=== PATIENT | male | born 1985 | race Caucasian/White ===

== ENCOUNTER 2021-06-15 10:47 | Outpatient (CLI) | payer OTHER, SELFPAY ==
[2021-06-15 18:33] LABS: Hematocrit 42.4 % (42.0-52.0); Hemoglobin 14.3 g/dL (14.0-18.0); Mean Corpuscular HGB Conc 33.7 g/dl (32-36); Mean Corpuscular Hemoglobin 29.8 pg (26-34); Mean Corpuscular Volume 88.3 fl (80-100); Mean Platelet Volume 10.2 fl (7.4-10.4); Platelet Count Result 208 k/mm3 (150-375); Red Cell Distribution Width 12.6 % (11.5-14.5); White Blood Count 5.8 K/mm3 (4.5-10.0)
[2021-06-15 18:54] LABS: Alanine Aminotransferase 47 U/L (4-50); Albumin Level 4.8 g/dL (3.5-5.1); Alkaline Phosphatase 55 U/L (38-126); Anion Gap 8 mmol/L (8-16); Aspartate Amino Transferase 33 U/L (17-59); Bilirubin,Total 0.8 mg/dL (0.2-1.3); Blood Urea Nitrogen 18 mg/dL (9-20); Calcium 9.8 mg/dL (8.4-10.2); Carbon Dioxide 29 mmol/L (22-30); Chloride 101 mmol/L (98-107); Cholesterol 249 mg/dL (0-200); Estimated Glomerular Filt Rate > 60; Glucose 110 mg/dL (65-110); HDL Direct 39 mg/dL; Lipase 59 U/L (23-300); Potassium 4.2 mmol/L (3.4-5.0); Sodium 138 mmol/L (137-145); Triglycerides 125 mg/dL (<150)
[2021-06-15 19:05] LABS: LDL Cholesterol Direct 166 mg/dL
[2021-06-15 19:17] LABS: Hemoglobin A1C 5.5 % (<5.7)
== END 2021-06-15 10:48 | disposition home or self-care (01) ==
PROVIDERS: PCP Family Medicine; Visit Provider Family Medicine
DX: Z00.00 Encounter for general adult medical examination without abnormal findings (principal); E66.3 Overweight; R10.11 Right upper quadrant pain
CPT/HCPCS: 36415; 80053; 80061; 83036; 83690; 84443; 85027

== ENCOUNTER 2021-06-27 07:45 | Outpatient (CLI) | payer OTHER, SELFPAY ==
--- NOTE | ~2021-06-27 | US_ITS ---
US abdomen limited DATE: 06/27/2021 08:18 INDICATION: Right upper quadrant abdominal pain TECHNIQUE: Real-time imaging, Doppler evaluation including liver, pancreas, gallbladder COMPARISON: None FINDINGS: No gallstones or gallbladder wall thickening or pericholecystic fluid. The common bile duct measures 3 mm, within normal range. Normal hepatopedal portal venous flow direction. No hepatic space-occupying mass lesion is evident. T he pancreas is largely obscured by bowel gas. IMPRESSION: The pancreas is not well demonstrated due to overlying bowel gas; otherwise unremarkable examination Reviewed, dictated and finalized at [facility]. Reviewed, dictated and finalized at [facility]. ARINE CHURN OPERATOR IMPRESSION: The pancreas is not well demonstrated due to overlying bowel gas; o therwise unremarkable examination
== END 2021-06-27 07:46 | disposition home or self-care (01) ==
LOC: ANHIMG 07:51
PROVIDERS: PCP Family Medicine; Visit Provider Family Medicine
DX: R10.11 Right upper quadrant pain (principal)
CPT/HCPCS: 76705

== ENCOUNTER 2022-03-31 08:48 | Outpatient (CLI) | payer OTHER, SELFPAY ==
[2022-03-31 19:15] LABS: Basophils Absolute Auto 0.1 K/mm3 (0.0-0.1); Basophils Percent Auto 0.4 % (0.2-1.2); Eosinophils Percent Auto 0.2 % (0-4.4); Hemoglobin 14.2 g/dL (14.0-18.0); Immature Granulocyte Absolute 0.09 K/mm3 (0.00-0.031); Immature Granulocyte Percent A 0.6 % (0-0.5); Lymphocytes Absolute Auto 1.51 K/mm3 (0.9-3.2); Mean Corpuscular HGB Conc 32.3 g/dl (32-36); Mean Corpuscular Hemoglobin 28.6 pg (26-34); Mean Corpuscular Volume 88.7 fl (80-100); Mean Platelet Volume 10.9 fl (7.4-10.4); Monocytes Absolute Auto 1.3 K/mm3 (0.1-0.6); Monocytes Percent Auto 8.3 % (2.6-8.5); Neutrophils Absolute Auto 12.2 K/mm3 (1.3-6.7); Neutrophils Percent Auto 80.5 % (45.5-73.1); Platelet Count Result 207 k/mm3 (150-375); Red Blood Count 4.96 M/mm3 (4.6-6.20); Red Cell Distribution Width 13.5 % (11.5-14.5); White Blood Count 15.1 K/mm3 (4.5-10.0)
[2022-03-31 21:00] LABS: Appearance Urine Cloudy (Clear); Bilirubin Urine 1+ (Negative); Blood Urine 3+ (Negative); Color Urine Yellow (Yellow); Glucose Urine UA Trace mg/dL (Negative); Ketones Urine Negative (Negative); Leukocyte Esterase Ur 1+ LEU/UL (NEGATIVE); Nitrate Urine Positive (Negative); Protein Urine 2+ mg/dL (Negative); Specific Grav Ur >= 1.030 (1.001-1.035); Urobilinogen Urine 0.2 mg/dL (<2.0); pH Urine 5.5 (5.0-9.0)
[2022-03-31 21:07] LABS: Bacteria Urine Trace /hpf; Mucus Urine Rare /lpf; RBC Urine 51-75 /hpf (0-2); Squamous Epithelial Cell Urine Rare /hpf (Few); WBC Clumps Urine Present /HPF; WBC Urine >75 /hpf (0-3)
[2022-03-31 21:20] LABS: Add Urine Microscopic? YES
== END 2022-03-31 08:49 | disposition home or self-care (01) ==
LOC: ANHBWCLAB 08:49
PROVIDERS: PCP Family Medicine; Visit Provider Family Medicine
DX: N30.90 Cystitis, unspecified without hematuria (principal)
CPT/HCPCS: 36415; 81001; 85025; 87077; 87086; 87186

== ENCOUNTER 2022-12-30 09:49 | Outpatient (CLI) | payer OTHER, SELFPAY | END 2022-12-30 09:50 | disposition home or self-care (01) | LOC: ANHBWCIMG 09:51 | PROVIDERS: PCP Family Medicine; Visit Provider Nurse Practitioner | DX: M25.562 Pain in left knee (principal) | CPT/HCPCS: 73562 ==

== ENCOUNTER → 2023-01-12 08:10 | Outpatient (CLI) | payer OTHER, SELFPAY ==
--- NOTE | ~2023-01-12 | MR_ITS ---
EXAMINATION: MR knee LT wo con DATE: 01/12/2023 09:33 INDICATION: M25.562 - Pain in left knee, popping sensation, jumping injury. TECHNIQUE: Magnetic resonance imaging (MRI) of the left knee was performed without intravenous contra st. Sequences included axial PD-weighted FS FSE, coronal PD-weighted FSE and PD-weighted FS FSE, sagi ttal PD-weighted FSE, and sagittal T2-weighted FS FSE. COMPARISON: X-ray left knee 12/30/2022. FINDINGS: Medial compartment: Meniscus intact. Mild diffuse cartilage thinning. Mild osteophytosis. Lateral compartment: Oblique undersurface tear of the anterior horn, lateral meniscus, with adjacent cystic fluid collecti on. Mild diffuse cartilage thinning and osteophytosis. Patellofemoral compartment: Mild lateral subluxation of the patella in a shallow femoral groove. Partial-thickness patellar carti robby signal change. Intact retinacula. Mild osteophytosis. Ligaments and tendons: The ACL, PCL, MCL, and LCL are intact. Remaining flexor and extensor tendons are intact. Fluid: Small volume joint fluid. Osseous/other: No suspicious focal or diffuse marrow signal. IMPRESSION: 1. Oblique undersurface tear of the anterior horn, lateral meniscus, with an adjacent perimeniscal cy st. 2. Mild tricompartmental osteoarthritis. 3. Small left knee joint effusion. Reviewed, dictated and finalized at [facility]. IMPRESSION: 1. Oblique undersurface tear of the anterior horn, lateral meniscus, with an ad jacent perimeniscal cyst. 2. Mild tricompartmental osteoarthritis. 3. Small left knee joint effusion.
== END ==
PROVIDERS: PCP Family Medicine; Visit Provider Nurse Practitioner
DX: S83.282A Other tear of lateral meniscus, current injury, left knee, initial encounter (principal); M17.12 Unilateral primary osteoarthritis, left knee; M25.462 Effusion, left knee; T14.90XA Injury, unspecified, initial encounter
CPT/HCPCS: 73721

== ENCOUNTER 2023-06-20 10:14 | Outpatient (CLI) | payer OTHER, SELFPAY ==
[2023-06-20 20:14] LABS: Hematocrit 45.1 % (42.0-52.0); Mean Corpuscular Hemoglobin 28.9 pg (26-34); Mean Platelet Volume 10.3 fl (7.4-10.4); Platelet Count Result 215 k/mm3 (150-375); Red Blood Count 4.85 M/mm3 (4.6-6.20); Red Cell Distribution Width 13.1 % (11.5-14.5); White Blood Count 6.9 K/mm3 (4.5-10.0)
[2023-06-20 20:22] LABS: Alanine Aminotransferase 36 U/L (6-50); Albumin Level 4.6 g/dL (3.5-5.1); Alkaline Phosphatase 67 U/L (38-126); Anion Gap 4 mmol/L (8-16); Aspartate Amino Transferase 41 U/L (17-59); Bilirubin,Total 0.5 mg/dL (0.2-1.3); Blood Urea Nitrogen 16 mg/dL (9-20); Calcium 9.3 mg/dL (8.4-10.2); Carbon Dioxide 30 mmol/L (22-30); Chloride 106 mmol/L (98-107); Cholesterol 219 mg/dL (0-200); Estimated Glomerular Filt Rate > 60; Glucose 111 mg/dL (65-110); HDL Direct 35 mg/dL; Potassium 4.5 mmol/L (3.4-5.0); Sodium 140 mmol/L (137-145); Triglycerides 163 mg/dL (<150); Uric Acid 6.3 mg/dL (3.5-8.5)
[2023-06-20 20:33] LABS: LDL Cholesterol Direct 130 mg/dL
[2023-06-20 23:34] LABS: Hemoglobin A1C 5.2 % (<5.7)
== END 2023-06-20 10:15 | disposition home or self-care (01) ==
LOC: ANHBWCLAB 10:15
PROVIDERS: PCP Nurse Practitioner Adult Health; Visit Provider Nurse Practitioner Adult Health
DX: M25.50 Pain in unspecified joint (principal); Z13.9 Encounter for screening, unspecified; E66.9 Obesity, unspecified
CPT/HCPCS: 36415; 80053; 80061; 83036; 84443; 84550; 85027

== ENCOUNTER 2023-07-26 08:28 | Outpatient (CLI) | payer OTHER, SELFPAY ==
--- NOTE | ~2023-07-26 | XR_ITS ---
Lumbosacral Spine: AP and lateral views Clinical History: Pain Findings: The normal lordotic curve is maintained. The vertebral bodies and posterior elements are i ntact. The intervertebral disc spaces are preserved. The sacroiliac joints are normally outlined. Impression: No significant abnormality. Reviewed, dictated and finalized at [facility]. GE NURSE Impression: No significant abnormality.
== END 2023-07-26 08:29 | disposition home or self-care (01) ==
LOC: ANHBWCIMG 08:29
PROVIDERS: PCP Nurse Practitioner Adult Health; Visit Provider Nurse Practitioner Adult Health
DX: M79.606 Pain in leg, unspecified (principal)
CPT/HCPCS: 72100

== ENCOUNTER 2024-06-19 13:16 | Outpatient (CLI) | payer OTHER, SELFPAY ==
--- NOTE | ~2024-06-19 | XR_ITS ---
Supine and upright views of the abdomen Clinical history: Abdominal pain Findings: Bowel gas pattern is nonspecific. No evidence for obstruction or free air. No abnormal mass lesion or calcification is seen. Osseous structures are intact. Impression: No significant abnormality is seen. Reviewed, dictated and finalized at [facility]. Impression: No significant abnormality is seen.
[2024-06-19 20:01] LABS: Add Urine Microscopic? NO; Appearance Urine Clear (Clear); Bilirubin Urine Negative (Negative); Blood Urine Negative (Negative); Color Urine Yellow (Yellow); Glucose Urine UA Negative (Negative); Ketones Urine Negative (Negative); Leukocyte Esterase Ur Negative LEU/UL (Negative); Nitrate Urine Negative (Negative); Protein Urine Negative (Negative); Specific Grav Ur 1.019 (1.001-1.035); Urobilinogen Urine 0.2 mg/dL (<2.0)
[2024-06-19 20:33] LABS: Alanine Aminotransferase 36 U/L (6-50); Albumin Level 4.8 g/dL (3.5-5.1); Alkaline Phosphatase 61 U/L (38-126); Anion Gap 9 mmol/L (4-12); Aspartate Amino Transferase 46 U/L (17-59); Bilirubin,Total 0.7 mg/dL (0.2-1.3); Blood Urea Nitrogen 16 mg/dL (9-20); Calcium 9.9 mg/dL (8.4-10.2); Carbon Dioxide 31 mmol/L (22-30); Chloride 101 mmol/L (98-107); Cholesterol 215 mg/dL (0-200); Estimated Glomerular Filt Rate > 60; Glucose 102 mg/dL (65-110); HDL Direct 35 mg/dL; Potassium 5.1 mmol/L (3.4-5.0); Sodium 141 mmol/L (137-145); Triglycerides 143 mg/dL (<150)
[2024-06-19 20:39] LABS: Hematocrit 45.9 % (42.0-52.0); Hemoglobin 15.3 g/dL (14.0-18.0); Mean Corpuscular HGB Conc 33.3 g/dl (32-36); Mean Corpuscular Hemoglobin 29.8 pg (26-34); Mean Corpuscular Volume 89.5 fl (80-100); Mean Platelet Volume 10.5 fl (7.4-10.4); Platelet Count Result 224 k/mm3 (150-375); Red Blood Count 5.13 M/mm3 (4.6-6.20); Red Cell Distribution Width 12.9 % (11.5-14.5); White Blood Count 7.1 K/mm3 (4.5-10.0)
[2024-06-19 20:47] LABS: LDL Cholesterol Direct 133 mg/dL
== END 2024-06-19 13:17 | disposition home or self-care (01) ==
LOC: ANHBWCLAB 13:18
PROVIDERS: PCP Nurse Practitioner Adult Health; Visit Provider Nurse Practitioner Adult Health
DX: R39.9 Unspecified symptoms and signs involving the genitourinary system (principal); Z13.9 Encounter for screening, unspecified
CPT/HCPCS: 36415; 74018; 80053; 80061; 81003; 84443; 85027; 87086